=== PATIENT | female | born 1980 | race Caucasian/White ===

== ENCOUNTER 2017-01-09 09:19 | Emergency (ER) | payer OTHER ==
--- NOTE | 2017-01-09 09:51 | ED ---
General Adult HPI - General Chief complaint: Extremity Injury, Upper Stated complaint: wrist pain Time Seen by Provider: 01/09/17 09:35 Source: patient, RN notes reviewed Mode of arrival: ambulatory Limitations: no limitations - History of Present Illness Initial comments: Patient 36-year-old female who presents emergency room today with chief complaint of increased pain to the left wrist. She does not that she noticed yesterday which is at work. 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 She states with certain movements she does experience pain to the radial aspect of the right wrist. She is unsure of any other specific injury or trauma. Patient states she did try some [id number] ibuprofen 200 mg with little bit of relief. She states it didn't seem to help when she put heat on it. States icing to make it throb more. She denies any other complaints or symptoms at this time. Patient denies any recent fever, chills, shortness of breath, chest pain, back pain, abdominal pain, nausea or vomiting, numbness or tingling, dysuria or hematuria, constipation or diarrhea, headaches or visual changes, or any other complaints. - Related Data Previous Rx's Medication Instructions Recorded Ibuprofen [Motrin] 600 mg PO Q6HR PRN #40 day 01/09/17 Allergies Allergy/AdvReac Type Severity Reaction Status Date / Time No Known Allergies Allergy Verified 01/09/17 10:05 Review of Systems ROS Statement: Those systems with pertinent positive or pertinent negative responses have been documented in the HPI. ROS Other: All systems not noted in ROS Statement are negative. Past Medical History Past Medical History: No Reported History History of Any Multi-Drug Resistant Organisms: None Reported Past Surgical History: Section, Tubal Ligation Past Psychological History: No Psychological Hx Reported Smoking Status: Current every day smoker Past Alcohol Use History: None Reported Past Drug Use History: None Reported General Exam - General Exam Comments Initial Comments: General: The patient is awake and alert, in no distress, and does not appear acutely ill. Neck: The neck is supple, there is no tenderness or JVD. Cardiovascular: There is a regular rate and rhythm. No murmur, rub or gallop is appreciated. Respiratory: Lungs are clear to auscultation, respirations are non-labored, breath sounds are equal. No wheezes, stridor, rales, or rhonchi. Musculoskeletal: Patient has normal appearance of the left wrist no obvious deformity. She shows good range of motion all directions of flexion and extension. Has mild tenderness with certain movements of flexion and extension and with medial deviation of the left wrist causing pain to the radial aspect at the base of the left thumb. No specific bony tenderness on exam. Her sensations are intact pulses equal bilaterally 2+. Strength is 5/5. Neurological: A&O x 3. CN II-XII intact, There are no obvious motor or sensory deficits. Coordination appears grossly intact. Speech is normal. Skin: Skin is warm and dry and no rashes or lesions are noted. Psychiatric: Normal mood and affect. Limitations: no limitations Course Vital Signs 01/09/17 09:33 Temperature 98.9 F Pulse Rate 100 Respiratory 20 Rate Blood Pressure 126/69 O2 Sat by Pulse 100 Oximetry Medical Decision Making - Medical Decision Making X-rays reviewed and are negative for any acute abnormalities. Results were discussed with the patient. Advised most likely muscular skeletal possibly pulled strained muscle versus a tendinitis due to her job of frequent repetitive motions. Advised patient to continue with anti-inflammatories and to follow-up with family doctor or orthopedics if symptoms are unimproved. Advised patient that she needs try to rest area as much as possible. Advised to use Berto wrap but not sleep this on. Advised return for any other concerns. Disposition Clinical Impression: Wrist pain, acute Disposition: HOME SELF-CARE Condition: Good Additional Instructions: Please use Berto wrap on up and moving around to help with compression and limited some of the range of motion. Please continue to elevate. Use heat or ice as discussed. Please use anti-inflammatories as prescribed. Please follow- up the family doctor or orthopedics over the next 7-10 days if symptoms are not improving. Please return for any other concerns. Prescriptions: Ibuprofen [Motrin] 600 mg PO Q6HR PRN #40 day PRN Reason: Pain Referrals: Glenn Negro MD [Primary Care Provider] - 1-2 days Gurpreet Fofana MD [STAFF PHYSICIAN] - 1-2 days Time of Disposition: 10:30
--- NOTE | 2017-01-09 10:03 | XR ---
Left wrist HISTORY: Left wrist pain 4 views of the left wrist No comparisons Bone mineralization, joint spaces and alignment are maintained. There is no fracture or dislocation. Soft tissues are within normal limits IMPRESSION: Normal left wrist
[2017-01-09 10:38] VITALS: BP 120/55; PULSE 80; RESP 18; TEMP 97.5
== END 2017-01-09 10:38 | disposition home or self-care (01) ==
LOC: EC 09:19
DX: M25.532 Pain in left wrist (principal); F17.200 Nicotine dependence, unspecified, uncomplicated
CPT/HCPCS: 99283

== ENCOUNTER 2018-03-31 16:41 | Emergency (ER) | payer OTHER ==
[2018-03-31 16:56] VITALS: BP 127/78; PULSE 105; RESP 18; TEMP 99.1
--- NOTE | 2018-03-31 18:57 | ED ---
General Adult HPI - General Chief complaint: Upper Respiratory Infection Stated complaint: Cough Time Seen by Provider: 03/31/18 17:11 Source: patient, RN notes reviewed Mode of arrival: ambulatory Limitations: no limitations - History of Present Illness Initial comments: This a 37-year-old female who is occur every day smoker of half pack per day presents today for chief complaint of cough. Patient states that for the past for 5 days she has a cough, she states that this is dry nature. She denies any productive sputum. Patient denies any fever, chills, night sweats. Patient denies any recent weight loss, hemoptysis, lower extremity edema, chest pain or shortness of breath. Patient states that she has had bronchitis in the past, and this feels similar. Patient denies congestion or sinus pressure. Upon review systems patient did admit to right ear pain she states that this has gone on for 1 day. Patient denies any hearing loss, drainage from the ear, trauma to the ear, pain when touched near. Upon arrival to ER patient afebrile , oxygen saturation 97% on RA. Patient denies any recent back pain, abdominal pain, nausea or vomiting, numbness or tingling, dysuria or hematuria, constipation or diarrhea, headaches or visual changes, or any other complaints. - Related Data Previous Rx's Medication Instructions Recorded Ibuprofen [Motrin] 600 mg PO Q6HR PRN #40 day 01/09/17 Albuterol Inhaler [Ventolin Hfa 1 - 2 puff INHALATION RT-Q6H PRN 7 03/31/18 Inhaler] Days #1 inhaler guaiFENesin-DM 100-10MG/5ML 10 ml PO Q6H PRN 5 Days #1 bottle 03/31/18 [Robitussin DM] Allergies Allergy/AdvReac Type Severity Reaction Status Date / Time No Known Allergies Allergy Verified 03/31/18 16:56 Review of Systems ROS Statement: Those systems with pertinent positive or pertinent negative responses have been documented in the HPI. ROS Other: All systems not noted in ROS Statement are negative. Past Medical History Past Medical History: No Reported History History of Any Multi-Drug Resistant Organisms: None Reported Past Surgical History: Section, Tubal Ligation Past Psychological History: No Psychological Hx Reported Smoking Status: Current every day smoker Past Alcohol Use History: None Reported Past Drug Use History: None Reported General Exam - General Exam Comments Initial Comments: General: The patient is awake and alert, in no distress, and does not appear acutely ill. No signs or symptoms of acute respiratory distress. Eye: Pupils are equal, round and reactive to light, extra-ocular movements are intact. No nystagmus. There is normal conjunctiva bilaterally. No signs of icterus. Ears, nose, mouth and throat: There are moist mucous membranes and no oral lesions. Oropharynx within normal limits nonerythematous. Tympanic membrane clear bilaterally, cone of light and malleus present. No evidence of effusion. External auditory canal nonerythematous no evidence of edema. Normal ear exam bilaterally. Neck: The neck is supple, there is no tenderness or JVD. Cardiovascular: There is a regular rate and rhythm. No murmur, rub or gallop is appreciated. Respiratory: Lungs are clear to auscultation, respirations are non-labored, breath sounds are equal. No wheezes, stridor, rales, or rhonchi. No crackles. Dry cough upon deep inspiration on exam. Musculoskeletal: Normal ROM, no tenderness. Strength 5/5. Sensation intact. Pulses equal bilaterally 2+. Neurological: A&O x 3. CN II-XII intact, There are no obvious motor or sensory deficits. Coordination appears grossly intact. Speech is normal. Skin: Skin is warm and dry and no rashes or lesions are noted. No lower to me edema. Psychiatric: Cooperative, appropriate mood & affect, normal judgment. Limitations: no limitations Course Vital Signs 03/31/18 16:53 Temperature 99.1 F Pulse Rate 105 H Respiratory 18 Rate Blood Pressure 127/78 O2 Sat by Pulse 97 Oximetry Medical Decision Making - Medical Decision Making 37-year-old female with chief with cough. At this time feel patient most likely has a bronchitis viral nature. No signs and symptoms for underlying pneumonia, patient afebrile no symptoms of fever or chills or productive cough. Case discussed in detail with Dr. Montero. At this time we feel symptomatically treatment is appropriate. Patient was given a Ventolin inhaler to be used for any shortness of breath as well as Robitussin-DM for cough. Patient agreed plan. Patient is instructed to return to emergency department for any chest pain, shortness of breath, fever, chills,night sweats, rigors or productive sputum. Patient verbalized understanding. Patient was discharged in stable condition with primary care follow-up in 1-2 days. Disposition Clinical Impression: Cough in adult Disposition: HOME SELF-CARE Condition: Good Instructions: Acute Cough (ED) Additional Instructions: Please use medication as discussed. Please follow-up with family doctor in the next 2 days of symptoms have not improved. Please return to emergency room if the symptoms increase or worsen or for any other concerns, including productive cough, fever, chills, chest pain or shortness of breath. Prescriptions: Albuterol Inhaler [Ventolin Hfa Inhaler] 1 - 2 puff INHALATION RT-Q6H PRN 7 Days #1 inhaler PRN Reason: Shortness Of Breath guaiFENesin-DM 100-10MG/5ML [Robitussin DM] 10 ml PO Q6H PRN 5 Days #1 bottle PRN Reason: Cough Is patient prescribed a controlled substance at d/c from ED?: No Referrals: Glenn Negro MD [Primary Care Provider] - 1-2 days Time of Disposition: 18:56
== END 2018-03-31 19:05 | disposition home or self-care (01) ==
LOC: EC 16:41
DX: R05 Cough (principal); H92.01 Otalgia, right ear; F17.210 Nicotine dependence, cigarettes, uncomplicated
CPT/HCPCS: 99283